=== PATIENT | male | born 2000 | race African-American/Black ===

== ENCOUNTER 2020-08-24 06:58 | Emergency (ER) | payer OTHER ==
[~2020-08-24] VITALS: Ht 185.4 cm; Wt 81.6 kg
[2020-08-24 07:06] VITALS: BP 125/70
--- NOTE | 2020-08-24 07:08 | NUR ---
ED Nurse Note: Patient walked into ED stating that he would like to get checked out. per patient his might have a possible yeast infection. patient denies discharge or burning sensation upon urination. patient complains of no pain at this time.
--- NOTE | 2020-08-24 07:34 | NUR ---
ED Nurse Note: Urine collected, sent to lab
[2020-08-24 07:51] LABS: APPEARANCE,URINE CLEAR; BILIRUBIN, URINE NEGATIVE (NEGATIVE); COLOR,URINE PALE YELLOW; GLUCOSE, URINE (UA) NEGATIVE (NEGATIVE); KETONES,URINE NEGATIVE (NEGATIVE); LEUKOCYTE ESTERASE ,URINE NEGATIVE (NEGATIVE); NITRITE,URINE NEGATIVE (NEGATIVE); PH,URINE 7 (4.5-8.0); PROTEIN,URINE NEGATIVE (NEGATIVE); UROBILINOGEN,URINE NORMAL MG/DL (0.0-1.0)
[2020-08-24 08:13] VITALS: BP 124/68
--- NOTE | 2020-08-24 08:13 | NUR ---
ER DISCHARGE NOTE: Patient is cleared to be discharged per ERMD, pt is aox4, on room air, with stable vital signs. pt was given dc and prescription instructions, pt was able to verbalize understanding, pt id band removed. pt is able to ambulate with steady gait. pt took all belongings.
--- NOTE | 2020-08-24 10:07 | Emergency Room Report ---
History of Present Illness General Chief Complaint: General Complaint Source: Patient Present Illness HPI 20-year-old male presents the ED for evaluation. States that he may have a "infection". States that his is is been having vaginal discharge. Patient denies any discharge. Denies any dysuria. Denies any scrotal pain. No other aggravating relieving factors. Denies any other associated symptoms Allergies: Coded Allergies: No Known Allergies (Unverified , 08/24/20) COVID-19 Screening Contact w/high risk pt: No Experienced COVID-19 symptoms?: No COVID-19 Testing performed BUS ASSISTANT: No Patient History Past Medical History: asthma Past Surgical History: none Pertinent Family History: none Social History: Denies: smoking, alcohol use, drug use Immunizations: UTD Reviewed Nursing Documentation: PMH: Agreed; PSxH: Agreed Nursing Documentation-PMH Hx Asthma: Yes Review of Systems All Other Systems: negative except mentioned in HPI Physical Exam Vital Signs Date Time Temp Pulse Resp B/P (MAP) Pulse Ox O2 Delivery O2 Flow Rate FiO2 08/24/20 07:00 97.9 82 16 131/73 (92) 98 Room Air Sp02 EP Interpretation: reviewed, normal General Appearance: no apparent distress, alert, GCS 15, non-toxic Head: normocephalic, atraumatic Eyes: bilateral eye normal inspection, bilateral eye PERRL ENT: hearing grossly normal, normal pharynx, no angioedema, normal voice Neck: full range of motion, supple/symm/no masses Respiratory: chest non-tender, lungs clear, normal breath sounds, speaking full sentences Cardiovascular #1: regular rate, rhythm, no edema Cardiovascular #2: 2+ carotid (R), 2+ carotid (L), 2+ radial (R), 2+ radial (L), 2+ dorsalis pedis (R), 2+ dorsalis pedis (L) Gastrointestinal: normal bowel sounds, non tender, soft, non-distended, no guarding, no rebound Rectal: deferred Genitourinary: normal inspection, no CVA tenderness Musculoskeletal: back normal, normal range of motion, gait/station normal, non- tender Neurologic: alert, motor strength/tone normal, oriented x3, sensory intact, responsive, speech normal Psychiatric: judgement/insight normal, memory normal, mood/affect normal, no suicidal/homicidal ideation Reflexes: 3+ bicep (R), 3+ bicep (L), 3+ tricep (R), 3+ tricep (L), 3+ knee (R), 3+ knee (L) Lymphatic: no adenopathy Medical Decision Making Diagnostic Impression: Primary Impression: Encounter for generalized patient complaints ER Course Hospital Course 20-year-old male presents for possible infection. with vaginal discharge Differential diagnoses include: trichimonas, gonorrhea, chlamydia Clinical course Patient placed on stretcher. After initial history physical exam reveals a young male in no acute distress. Physical exam unremarkable. No testicular pain or swelling. No noted urethral discharge UA Unremarkable I discussed findings with patient. Asymptomatic. No noted discharge. UA clear. I explained that during there could be some physiological discharge. However if he is concerned for STD we could treat empirically. Patient states he would prefer to be tested first. I will provide STD clinic referrals. Safe for discharge for close outpatient follow-up Diagnosis -encounter for generalized patient complaint Stable and discharged home. Instructed to followup with PMD. Return to ED if symptoms recur or worsen Laboratory Tests Test 08/24/20 07:29 Urine Color Pale yellow Urine Appearance Clear Urine pH 7 (4.5-8.0) Urine Specific [place] 1.010 (1.005-1.035) Urine Protein Negative (NEGATIVE) Urine Glucose (UA) Negative (NEGATIVE) Urine Ketones Negative (NEGATIVE) Urine Blood Negative (NEGATIVE) Urine Nitrite Negative (NEGATIVE) Urine Bilirubin Negative (NEGATIVE) Urine Urobilinogen Normal MG/DL (0.0-1.0) Urine Leukocyte Esterase Negative (NEGATIVE) Last Vital Signs Date Time Temp Pulse Resp B/P (MAP) Pulse Ox O2 Delivery O2 Flow Rate FiO2 08/24/20 08:13 97.9 72 16 124/68 100 Room Air Status: improved Disposition: HOME, SELF-CARE Condition: Stable Referrals: PREFERRED [facility],REFERRING (PCP) [facility] Patient Instructions: Urethritis, Adult Ra Anderson MD Aug 24, 2020 10:07
[2020-08-24] MEDS ORDERED: ACETAMINOPHEN-1 EAC1 ORAL (19:14)
[2020-08-24] MEDS ORDERED: AUGMENTIN 875-1 EAC1 ORAL (19:14)
[2020-08-24] MEDS ORDERED: IBUPROFEN800 M1 PO (19:14)
== END 2020-08-24 08:13 | disposition home or self-care (01) ==
LOC: EMR 07:13
DX: Z00.00 Encounter for general adult medical examination without abnormal findings (principal)
CPT/HCPCS: 81003; Z7502; 99283

== ENCOUNTER 2020-08-24 17:39 | Emergency (ER) | payer OTHER ==
[~2020-08-24] VITALS: Ht 185.4 cm; Wt 81.6 kg
[2020-08-24 17:48] VITALS: BP 128/70
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
[2020-08-24] MEDS ORDERED: Acetaminophen 500mg (ES) tab ORAL ONE ×2 (18:11→18:15)
--- NOTE | 2020-08-24 18:14 | NUR ---
ED Nurse Note: pt taken to have x ray and CT scan via gurney by radio technician in stable condition.
--- NOTE | 2020-08-24 18:28 | NUR ---
ED Nurse Note: pt back from ct/ xray
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
--- NOTE | 2020-08-24 19:04 | NUR ---
ED Nurse Note: Report given to MARIAM Duncan. Endorsed plan of care.
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
[2020-08-24] MEDS ORDERED: IBUPROFEN800 M1 PO (19:14)
[2020-08-24] MEDS ORDERED: ACETAMINOPHEN-1 EAC1 ORAL (19:14)
[2020-08-24] MEDS ORDERED: AUGMENTIN 875-1 EAC1 ORAL (19:14)
[2020-08-24 19:20] VITALS: BP 133/71
--- NOTE | 2020-08-24 19:20 | NUR ---
ER DISCHARGE NOTE: Patient is cleared to be discharged per ERMD, pt is aox4, on room air, with stable vital signs. pt was given dc and prescription instructions, pt was able to verbalize understanding, pt id band removed removed. pt is able to ambulate with steady gait. pt took all belongings. splint applied to R wrist, pt tolerated well
== END 2020-08-24 19:20 | disposition home or self-care (01) ==
LOC: EMR 18:35
DX: S01.511A Laceration without foreign body of lip, initial encounter (principal); S69.91XA Unspecified injury of right wrist, hand and finger(s), initial encounter; S00.83XA Contusion of other part of head, initial encounter; Y09 Assault by unspecified means; S05.11XA Contusion of eyeball and orbital tissues, right eye, initial encounter; S00.03XA Contusion of scalp, initial encounter
CPT/HCPCS: 12011; 29125; 70450; 70486; 73130; Z7502; 99284

== ENCOUNTER 2020-08-31 11:34 | Emergency (ER) | payer OTHER ==
[~2020-08-31] VITALS: Ht 185.4 cm; Wt 86.2 kg
[~2020-08-31 11:34] MED LIST: ACETAMINOPHEN-1 EAC1 ORAL; AUGMENTIN 875-1 EAC1 ORAL; IBUPROFEN800 M1 PO
[2020-08-31 11:42] VITALS: BP 128/75
--- NOTE | 2020-08-31 11:57 | Emergency Room Report ---
History of Present Illness General Chief Complaint: Wound Recheck/Suture Removal Source: Patient Present Illness HPI Disclaimer: Please note that this report is being documented using [employer] technology. This can lead to erroneous entry secondary to incorrect interpretation by the dictating instrument. HPI: 20-year-old male presents for evaluation of suture removal. He had a lip laceration repaired with simple interrupted Prolene sutures 6 days ago. Denies wound dehiscence or bleeding. No reinjury reported. No other concerns at this time. PMH: Reviewed PSH: Reviewed Allergies: Reviewed Social Hx: Reviewed Allergies: Coded Allergies: No Known Allergies (Unverified , 08/24/20) COVID-19 Screening Contact w/high risk pt: No Experienced COVID-19 symptoms?: No COVID-19 Testing performed CHECKMAN: No Nursing Documentation-PMH Hx Asthma: Yes Review of Systems All Other Systems: negative except mentioned in HPI Physical Exam Vital Signs Date Time Temp Pulse Resp B/P (MAP) Pulse Ox O2 Delivery O2 Flow Rate FiO2 08/31/20 11:42 98.2 67 19 128/75 (92) 95 Room Air General: Awake and alert, no acute distress HEENT: NC/AT. EOMI. there is an approximately 3 cm laceration over the right upper lip extending in through the vermilion border around into the mucosa. 7 simple interrupted sutures are present and intact. There is still some sepa ration of the mucosal tissue in the inferior portion. No active bleeding or purulence or significant edema. Resp: Normal work of breathing Skin: there is an approximately 3 cm laceration over the right upper lip extending in through the vermilion border around into the mucosa. 7 simple interrupted sutures are present and intact. There is still some separation of the mucosal tissue in the inferior portion. No active bleeding or purulence or significant edema. MSK: Normal tone and bulk. Moving all extremities. No obvious deformity. Neuro: Awake and alert. Mentating appropriately Medical Decision Making Diagnostic Impression: Primary Impression: Encounter for re-check of laceration wound ER Course 20-year-old male presents for evaluation of lip laceration that was repaired 6 days ago. 5 of the 7 simple interrupted Prolene sutures were removed as there is adequate wound healing however the inferior to her left hand as the mucosal surface is still somewhat . No signs of infection. Instructed to return in 2 days to have the final 2 sutures removed. Ibuprofen refilled. He understands and agrees with this treatment plan. Last Vital Signs Date Time Temp Pulse Resp B/P (MAP) Pulse Ox O2 Delivery O2 Flow Rate FiO2 08/31/20 11:42 98.2 67 19 128/75 95 Room Air Disposition: HOME, SELF-CARE Condition: Stable Scripts Ibuprofen (Ibuprofen) 800 Mg Tablet 800 MG PO TID, #30 TAB Prov: Israel Arellano MD 08/31/20 Patient Instructions: Wound Check Additional Instructions: Return in 1 to 2 days to remove the remaining 2 sutures in your lip. Israel Arellano MD Aug 31, 2020 11:57
[2020-08-31] MEDS ORDERED: IBUPROFEN800 M1 PO (11:58)
[2020-08-31 12:03] VITALS: BP 130/75
== END 2020-08-31 12:03 | disposition home or self-care (01) ==
LOC: EMR 11:55
DX: S01.511A Laceration without foreign body of lip, initial encounter (principal); Z48.02 Encounter for removal of sutures; X58.XXXA Exposure to other specified factors, initial encounter; Y92.9 Unspecified place or not applicable
CPT/HCPCS: 99282

== ENCOUNTER 2020-09-02 12:40 | Emergency (ER) | payer OTHER ==
[~2020-09-02] VITALS: Ht 185.4 cm; Wt 81.6 kg
--- NOTE | 2020-09-02 12:55 | NUR ---
ED Nurse Note: Pt ambulated to ed stating he was here wednesday and got 5 stitches removed from his top right lip and was informed to come back in two days to get 2 of the last stithches removed. denies pain, site clean
[2020-09-02 12:56] VITALS: BP 120/67
--- NOTE | 2020-09-02 13:31 | Emergency Room Report ---
History of Present Illness General Chief Complaint: Wound Recheck/Suture Removal Source: Patient Present Illness HPI 20 YO male presents to the ED c/o 2 remaining sutures in the lip that need to be removed s/p wound closure 1 week ago. He denies pain at this time he denies bleeding or discharge from the wound. Patient reports some tenderness with eating as the scar tissue and sutures rub against his inner gums. Patient denies fevers or chills. He reports that he is up-to-date with vaccinations. No other aggravating or relieving factors at this time. Allergies: Coded Allergies: No Known Allergies (Unverified , 08/24/20) COVID-19 Screening Contact w/high risk pt: No Experienced COVID-19 symptoms?: No COVID-19 Testing performed DONATIONS ATTENDANT: No Patient History Past Medical History: see triage record Past Surgical History: none Pertinent Family History: none Immunizations: UTD Reviewed Nursing Documentation: PMH: Agreed; PSxH: Agreed Nursing Documentation-PMH Hx Asthma: Yes Review of Systems All Other Systems: negative except mentioned in HPI Physical Exam Vital Signs Date Time Temp Pulse Resp B/P (MAP) Pulse Ox O2 Delivery O2 Flow Rate FiO2 09/02/20 12:51 98.4 63 19 120/67 (84) 98 Room Air Sp02 EP Interpretation: reviewed, normal General Appearance: no apparent distress, alert, GCS 15, non-toxic Head: normocephalic, atraumatic Eyes: bilateral eye normal inspection, bilateral eye PERRL ENT: hearing grossly normal, normal voice Neck: full range of motion Respiratory: lungs clear, normal breath sounds, speaking full sentences Cardiovascular #1: regular rate, rhythm Musculoskeletal: back normal, normal range of motion, gait/station normal, non- tender Neurologic: alert, motor strength/tone normal, oriented x3, sensory intact, responsive, speech normal Psychiatric: judgement/insight normal Skin: wd healing/no infection noted - healed laceration of the upper lip on the right side with 2 sutures present. There is moderate visible and palpable scar tissue. Medical Decision Making PA Attestation Dr. Juárez is my supervising Physician whom patient management has been discussed with. Diagnostic Impression: Primary Impression: Encounter for removal of sutures ER Course Pt. presents to the ED c/o 2 remaining sutures in the lip that need to be removed s/p wound closure 1 week ago. Ddx considered but are not limited to laceration, tendon injury, cellulitis,dehiscence. Vital signs: are WNL, pt. is afebrile H&PE are most consistent with: healed laceration of the upper lip on the right side with 2 sutures present. There is moderate visible and palpable scar tissue. ORDERS: none required at this time, the diagnosis is clinical ED INTERVENTIONS: - 2 Sutures removed. DISCHARGE: At this time pt. is stable for d/c to home. Will provide printed patient care instructions, and any necessary prescriptions. Care plan and follow up instructions have been discussed with the patient prior to discharge. Last Vital Signs Date Time Temp Pulse Resp B/P (MAP) Pulse Ox O2 Delivery O2 Flow Rate FiO2 09/02/20 12:56 98.4 72 19 120/67 98 Room Air Disposition: HOME, SELF-CARE Condition: Stable Patient Instructions: Suture Removal, Care After Additional Instructions: Take medications as directed. Follow up with a Primary Care Provider in 3-5 days, even if your symptoms h ave resolved. Return sooner to ED if new symptoms occur, or current symptoms become worse. - Please note that this Emergency Department Report was dictated using [employer] supervisor chassis technology software, occasionally this can lead to ashley eous entry secondary to interpretation by the dictation equipment. Christine Bates Sep 02, 2020 13:31
--- NOTE | 2020-09-02 13:36 | NUR ---
ER DISCHARGE NOTE: Patient is cleared to be discharged per ERMD, pt is aox4, on room air, with stable vital signs. pt was given dc and prescription instructions, pt was able to verbalize understanding, pt id bandremoved. pt is able to ambulate with steady gait. pt took all belongings.
[2020-09-02 13:37] VITALS: BP 125/77
== END 2020-09-02 13:36 | disposition home or self-care (01) ==
LOC: EMR 13:32
DX: Z48.02 Encounter for removal of sutures (principal)
CPT/HCPCS: 99282

== ENCOUNTER 2020-12-17 10:57 | Emergency (ER) | payer OTHER ==
[~2020-12-17] VITALS: Ht 185.4 cm; Wt 95.3 kg
--- NOTE | 2020-12-17 11:14 | NUR ---
ED Nurse Note: Pt walked into ED for lower back pain and lateral rib pain 05/17. Pt denies SOB, bodyaches, chills, nausea, vomiting. Pt has been seen by ERMD. Pt is alert and orientedx4, ambulatory.
[2020-12-17 11:18] VITALS: BP 125/70
--- NOTE | 2020-12-17 11:43 | Emergency Room Report ---
History of Present Illness General Chief Complaint: Back Pain-No Injury Source: Patient Present Illness HPI Patient presents with worsening upper back pain radiates to the left side. He is taking no medication for this. He denies fevers or chills or productive cough. He has never had this problem before. The pain catches at times and he has more difficulty with deep breaths. Denies any recent trauma. The patient does not remember what was happening when he first noticed the pain. He rates the pain 7/10 at this time and aching. Patient denies exposure to Covid positive contacts. No sore throat, palpitations, nausea, vomiting, diarrhea, dysuria, abdominal pain, rashes. Allergies: Coded Allergies: No Known Allergies (Unverified , 08/24/20) COVID-19 Screening Contact w/high risk pt: No Experienced COVID-19 symptoms?: No COVID-19 Testing performed RN TELE: Yes COVID-19 Screening: Negative COVID-19 COVID-19 Testing Source: 3 weeks ago Patient History Past Medical History: see triage record Social History: Denies: smoking Social History Narrative Not working Reviewed Nursing Documentation: PMH: Agreed; PSxH: Agreed Nursing Documentation-PMH Hx Asthma: Yes Review of Systems All Other Systems: negative except mentioned in HPI Physical Exam Vital Signs Date Time Temp Pulse Resp B/P (MAP) Pulse Ox O2 Delivery O2 Flow Rate FiO2 12/17/20 11:03 98.2 79 16 128/72 (90) 94 Room Air Sp02 EP Interpretation: reviewed, normal General Appearance: well appearing, no apparent distress, GCS 15, non-toxic Head: normocephalic Eyes: bilateral eye normal inspection, bilateral eye PERRL, bilateral eye EOMI ENT: other - Running mask Neck: full range of motion, supple Respiratory: lungs clear, normal breath sounds, other - See back Cardiovascular #1: regular rate, rhythm Cardiovascular #2: 2+ radial (R) Gastrointestinal: normal inspection, non tender, non-distended Musculoskeletal: normal range of motion, gait/station normal, tender - Upper back paraspinous muscles Neurologic: alert, oriented x3, grossly normal Psychiatric: mood/affect normal Skin: no rash, warm/dry Medical Decision Making Diagnostic Impression: Primary Impression: Back pain Qualified Codes: M54.6 - Pain in thoracic spine Additional Impression: Muscle spasm ER Course Patient presents with upper back pain radiating to his left chest. Differential includes back strain, muscle spasm, pneumothorax amongst others. Based on history and physical exam pulmonary embolus unlikely. There is a lack of cardiac risk factors. Chest x-ray PA and lateral are indicated. In addition patient is treated with ibuprofen and Tylenol. Chest x-ray normal. Patient improved with treatment. Discussed x-ray findings and suspected diagnosis. Discussed treatment plan. No medical emergency at this time. Patient stable for outpatient observation and treatment. Chest X-Ray Diagnostic Results Chest X-Ray Diagnostic Results : Chest X-Ray Ordered: Yes # of Views/Limited/Complete: 2 View Indication: Chest Pain EP Interpretation: Yes Interpretation: no consolidation, no effusion, no pneumothorax Impression: No acute disease Electronically Signed by: Electronically signed by Ralf Noel MD Last Vital Signs Date Time Temp Pulse Resp B/P (MAP) Pulse Ox O2 Delivery O2 Flow Rate FiO2 12/17/20 12:56 98.2 71 17 120/76 99 Room Air Status: improved Disposition: HOME, SELF-CARE Condition: Improved Scripts Methocarbamol* (ROBAXIN-500*) 500 Mg Tablet 500 MG ORAL TID PRN for muscle spasm, #10 TAB 0 Refills Prov: Ralf Noel MD 12/17/20 Tramadol Hcl* (ULTRAM*) 50 Mg Tablet 50 MG ORAL Q6H PRN for For Pain, #8 TAB 0 Refills Prov: Ralf Noel MD 12/17/20 Ibuprofen* (MOTRIN*) 600 Mg Tablet 600 MG ORAL Q6H PRN for FOR PAIN, #20 TAB 0 Refills Prov: Ralf Noel MD 12/17/20 Ralf Noel MD Dec 17, 2020 11:43
[2020-12-17] MEDS ORDERED: Acetaminophen 500mg (ES) tab ORAL ONE (11:45)
[2020-12-17] MEDS ORDERED: IBUPROFEN600 M1 ORAL (12:26)
[2020-12-17] MEDS ORDERED: ROBAXIN-500MG ORAL (12:26)
[2020-12-17] MEDS ORDERED: TRAMADOL HCL50 MG ORAL (12:26)
[2020-12-17 12:56] VITALS: BP 120/76
--- NOTE | 2020-12-17 16:11 | Diagnostic Imaging Report ---
Indication: Chest pain Technique: 2 views of the chest Comparison: None Findings: The lung apices are cut off of the AP view. Lungs and pleural spaces are clear. The heart size is normal. The bones are unremarkable. No significant interim change. Impression: Negative
== END 2020-12-17 12:56 | disposition home or self-care (01) ==
LOC: EMR 11:37
DX: M54.6 Pain in thoracic spine (principal); M62.838 Other muscle spasm
CPT/HCPCS: 71046; Z7502; 99283